=== PATIENT | female | born 1985 | race Caucasian/White ===

== ENCOUNTER 2017-11-19 19:28 | Emergency (ER) ==
[2017-11-19 19:41] VITALS: BP 166/99; TEMP 98.6; BMI 36.6
[2017-11-19] MEDS ORDERED: SILVADENE CREAM TP STA (19:48)
[2017-11-19] MEDS ORDERED: TORADOL IM STA (20:02)
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
== END 2017-11-19 20:20 | disposition home or self-care (01) ==
LOC: ED 19:28
DX: T25.091A Burn of unspecified degree of multiple sites of right ankle and foot, initial encounter (principal); T31.0 Burns involving less than 10% of body surface; X10.0XXA Contact with hot drinks, initial encounter
CPT/HCPCS: 96372; 99282

== ENCOUNTER 2018-07-29 21:37 | Emergency (ER) ==
[2018-07-29 21:42] VITALS: BP 211/116; TEMP 97.6; BMI 40.5
[2018-07-29 22:01] LABS: URINE PREGNANCY TEST NEGATIVE (NEGATIVE)
--- NOTE | 2018-07-29 22:39 | CT ---
Exam: CT of the abdomen and pelvis without contrast History: Lower abdomen pain Technique: [address] of the abdomen pelvis without intravascular contrast FINDINGS: The lung bases are clear. No significant liver abnormality. The adrenals, pancreas and s pleen are unremarkable. The stomach and hiatus are unremarkable.The gallbladder appears normal. Kid neys and proximal collecting system are unremarkable. The appendix is normal. Bowel loops demonstra te normal caliber. No inflamatory change seen in the mesentery or retroperitoneum. Vascular structu res appear normal by noncontrast CT. Pelvic genitourinary structures appear normal. Pelvic bowel loops are unremarkable. No inflammatory change in the pelvic fat. No acute abnormality of the abdominal or pelvic skeleton. Impression: 1. No inflammatory process, bowel or urinary obstruction. No acute findings of the abdomen and pelv is.
--- NOTE | 2018-07-29 22:59 | ED.PDOC ---
General ED Provider: Dr. PEPE LOPES-ER Chief Complaint: Abdominal Pain Stated Complaint: im having pain with my period Time Seen by Physician: 21:40 Mode of Arrival: Walk-In Information Source: Patient Exam Limitations: No limitations Primary Care Provider: DAMIAN LIN Nursing and Triage Documentation Reviewed and Agree: Yes Does patient meet sepsis criteria?: No System Inflammatory Response Syndrome: Not Applicable Sepsis Protocol: For patient's 13 years and over: Temp is 96.8 and below OR 101 and greater Pulse >90 BPM Resp >20/minute Acutely Altered Mental Status Are patient's symptoms suggestive of a new infection, such as: -Pneumonia -Skin, Soft Tissue -Endocarditis -UTI -Bone, Joint Infection -Implantable Device -Acute Abdominal Infection -Wound Infection -Meningitis -Blood Stream Catheter Infection -Unknown [employer] Complaint Exam - Vaginal Bleeding Complaint/Exam Onset/Duration: 2 dys Symptoms Are: Still present Timing: Constant Initial Severity: Mild Current Severity: Mild Character: Reports: Bright red Aggravating: Reports: None Alleviating: Reports: None Associated Signs and Symptoms: Reports: Abdominal pain, Cramping Abdominal Findings: Present: None Differential Diagnoses: DUB, Endometriosis Review of Systems - Review Of Systems Constitutional: Reports: No symptoms Eyes: Reports: No symptoms Ears, Nose, Mouth, Throat: Reports: No symptoms Respiratory: Reports: No symptoms Cardiac: Reports: No symptoms GI: Reports: Abdominal pain : Reports: No symptoms Musculoskeletal: Reports: No symptoms Skin: Reports: No symptoms Neurological: Reports: No symptoms Endocrine: Reports: No symptoms Hematologic/Lymphatic: Reports: No symptoms All Other Systems: Reviewed and Negative Past Medical History - Past Medical History Previously Healthy: Yes Endocrine: Reports: DM 2 Cardiovascular: Reports: None Respiratory: Reports: None Hematological: Reports: None Gastrointestinal: Reports: None Genitourinary: Reports: None Neuro/Psych: Reports: None Musculoskeletal: Reports: None Cancer: Reports: None Last Menstrual Period: current - Surgical History General Surgical History: Reports: None - Family History Family History: Reports: Unknown - Social History Smoking Status: Never smoker Hx Substance Use: No Alcohol Screening: None - Immunizations Tetanus Shot up to Date: Yes Physical Exam - Physical Exam Appearance: Well-appearing, No pain distress, Well-nourished Pain Distress: Mild Eyes: AMEE, EOMI, Conjunctiva clear ENT: Ears normal, Nose normal, Oropharynx normal Neck: Supple Respiratory: Airway patent, Breath sounds clear, Breath sounds equal, Respirations nonlabored Cardiovascular: RRR, Pulses normal, No rub, No murmur GI/: Soft, Nontender, No masses, Bowel sounds normal, No Organomegaly Musculoskeletal: Normal strength, ROM intact, No edema, No calf tenderness Skin: Warm, Dry, Normal color Neurological: Sensation intact, Motor intact, Reflexes intact, Cranial nerves intact, Alert, Oriented Psychiatric: Affect appropriate Interpretation - Radiology Interpretation Radiology Interpretation By: Radiologist Radiology Results: Negative Exam Interpreted: CT Scan Critical Care Note - Critical Care Note Total Time (mins): 0 Course - Course Hematology/Chemistry: 07/29/18 22:01 07/29/18 22:01 Orders, Labs, Meds: Lab Review 07/29/18 07/29/18 07/29/18 21:53 21:53 22:01 WBC 8.02 RBC 4.96 Hgb 14.0 Hct 41.1 MCV 82.9 MCH 28.2 MCHC 34.1 RDW Coeff of Brigida 12.5 Plt Count 249 Immature Gran % (Auto) 0.5 Neut % (Auto) 54.2 Lymph % (Auto) 36.0 [place] % (Auto) 7.7 Eos % (Auto) 1.5 Baso % (Auto) 0.1 Immature Gran # (Auto) 0.0 Neut # (Auto) 4.3 Lymph # (Auto) 2.9 [place] # (Auto) 0.6 Eos # (Auto) 0.1 Baso # (Auto) 0.0 ESR 20 Sodium Potassium Chloride Carbon Dioxide Anion Gap BUN Creatinine Estimated GFR (MDRD) BUN/Creatinine Ratio Glucose Calcium Total Bilirubin AST ALT Alkaline Phosphatase Total Protein Albumin Globulin Albumin/Globulin Ratio Amylase Lipase Urine Color Red Urine Clarity Cloudy Urine pH 7.5 Ur Specific Daniels 1.015 Urine Protein 2+ Urine Glucose (UA) 1+ Urine Ketones Negative Urine Blood 3+ Urine Nitrite Negative Urine Bilirubin Negative Urine Urobilinogen 0.2 Ur Leukocyte Esterase Trace Urine Microscopic RBC Tntc Urine Microscopic WBC 2-5 Ur Squamous Epith Cells 0-2 Urine Mucus 1+ Urine Test Negative 07/29/18 22:01 WBC RBC Hgb Hct MCV MCH MCHC RDW Coeff of Brigida Plt Count Immature Gran % (Auto) Neut % (Auto) Lymph % (Auto) [place] % (Auto) Eos % (Auto) Baso % (Auto) Immature Gran # (Auto) Neut # (Auto) Lymph # (Auto) [place] # (Auto) Eos # (Auto) Baso # (Auto) ESR Sodium 139.5 Potassium 3.81 Chloride 105.9 Carbon Dioxide 21.9 L Anion Gap 15.51 BUN 8.6 Creatinine 0.40 L Estimated GFR (MDRD) 186.00 BUN/Creatinine Ratio 21.50 Glucose 172.4 H Calcium 9.02 Total Bilirubin 0.21 AST 20.8 ALT 25.3 Alkaline Phosphatase 73.0 Total Protein 8.05 Albumin 4.45 Globulin 3.60 Albumin/Globulin Ratio 1.23 Amylase 60.4 Lipase 82.7 Urine Color Urine Clarity Urine pH Ur Specific Daniels Urine Protein Urine Glucose (UA) Urine Ketones Urine Blood Urine Nitrite Urine Bilirubin Urine Urobilinogen Ur Leukocyte Esterase Urine Microscopic RBC Urine Microscopic WBC Ur Squamous Epith Cells Urine Mucus Urine Test Orders Category Date Time Status AMYLASE Stat LAB 07/29/18 22:01 Completed CBC W/ AUTO DIFF Stat LAB 07/29/18 22:01 Completed COMPREHENSIVE METABOLIC PANEL Stat LAB 07/29/18 22:01 Completed ESR Stat LAB 07/29/18 22:01 Completed LIPASE Stat LAB 07/29/18 22:01 Completed URINALYSIS C & S IF INDICATED Stat LAB 07/29/18 21:53 Completed URINE Stat LAB 07/29/18 21:[address] ABDOMEN/PELVIS WO CONTRAST Stat RADS 07/29/18 21:43 Completed Vital Signs: Temp Pulse Resp BP Pulse Ox 07/29/18 21:38 97.6 F 131 H 20 211/116 H 98 Departure - Departure Time of Disposition: 22:59 Disposition: HOME SELF-CARE Discharge Problem: Dysmenorrhea Instructions: Dysmenorrhea (ED) Condition: Good Pt referred to PMD for follow-up: Yes IPMP verified?: No Additional Instructions: f/u with dr lin for otologist referral Allergies/Adverse Reactions: Allergies No Known Allergies Allergy (Unverified 07/29/18 21:41) Home Medications: Ambulatory Orders 1 [No Reported Medications] 07/29/18 Disposition Discussed With: Patient
== END 2018-07-29 23:05 | disposition home or self-care (01) ==
LOC: ED 21:37
DX: N94.6 Dysmenorrhea, unspecified (principal)
CPT/HCPCS: 36415; 80053; 81001; 81025; 82150; 83690; 85025; 85651; 99283

== ENCOUNTER 2018-09-15 | Emergency (ER) | END 2018-09-15 14:30 | disposition home or self-care (01) | DX: M25.511 Pain in right shoulder (principal) | CPT/HCPCS: 99282 ==